=== PATIENT | female | born 1955 | race Caucasian/White ===

== ENCOUNTER 2021-12-12 13:51 | Emergency (ER) | payer OTHER ==
[~2021-12-12] VITALS: Ht 167.6 cm; Wt 75.7 kg
[2021-12-12] MEDS ORDERED: IV NORMAL SALINE 500 ML BAG IV ONE (14:15)
[2021-12-12 14:59] LABS: ALANINE AMINOTRANSFERASE 27 U/L (14-59); ALKALINE PHOSPHATASE 133 U/L (50-136); ASPARTATE AMINOTRANSFERASE 14 U/L (15-37); BILIRUBIN,DIRECT 0.2 mg/dL (0.0-0.2); BILIRUBIN,TOTAL 0.5 mg/dL (0.2-1.0); CARBON DIOXIDE 27 mmol/L (21-32); CHLORIDE 109 mmol/L (98-107); CREATININE 1.3 mg/dL (0.6-1.3); GLUCOSE 101 mg/dL (74-106); POTASSIUM 3.9 mmol/L (3.5-5.1); TOTAL PROTEIN, SERUM 6.7 g/dL (6.4-8.2); UREA NITROGEN, BLOOD 20 mg/dL (7-18)
[2021-12-12 15:19] LABS: HEMATOCRIT 36.2 % (31.2-41.9); MEAN CORPUSCULAR HEMOGLOBIN 32.2 uug (24.7-32.8); MEAN CORPUSCULAR VOLUME 97.2 fL (75.5-95.3); PLATELET COUNT (AUTO) 181 K/uL (179-408)
[2021-12-12 16:05] LABS: *BILIRUBIN,URIN NEGATIVE (NEGATIVE); *BLOOD, URINE NEGATIVE (NEGATIVE); *CLARITY,URINE CLEAR (CLEAR); *COLOR,URINE LIGHT YELLOW (YELLOW); *KETONES,URINE NEGATIVE (NEGATIVE); *UROBILINOGEN,URINE 0.2 E.U./dl (NORMAL); LEUKOCYTE ESTERASE ,URINE TRACE (NEGATIVE); NITRITE, URINE NEGATIVE (NEGATIVE); UGLUCOSE NEGATIVE (NEGATIVE)
--- NOTE | 2021-12-12 16:10 | NUR ---
Collected urine and covid test, sent to lab
[2021-12-12 16:19] LABS: RBC,URINE NONE SEEN /HPF (0-3); WBC,URINE NONE SEEN /HPF (0-3)
[2021-12-12 16:20] LABS: BACTERIA,URINE NONE SEEN /HPF (NONE SEEN); SQUAMOUS EPITHELIAL CELL,UR FEW /HPF (NONE SEEN)
--- NOTE | 2021-12-12 17:38 | NUR ---
Patient is resting comfortably in bed with eyes closed< NAD noted. [facility]
--- NOTE | 2021-12-12 18:00 | NUR ---
Called [facility], for pt's transfer.
--- NOTE | 2021-12-12 18:04 | NUR ---
Dr Jiang spoke to Dr Loaiza from [facility].
--- NOTE | 2021-12-12 20:25 | NUR ---
Telephone call to [facility], spoke to Lisa, stated that they are still waiting a call back from [facility] for bed request.
--- NOTE | 2021-12-12 22:08 | NUR ---
Telephone call from [facility] and provided information for transfer. Patient to be transfer to [facility] Room 3303A. Admitting MD, DR Phillips. Telephone # for report .
--- NOTE | 2021-12-12 22:09 | NUR ---
Report given to nurse Encarnacion from [facility]. Patient transportation ETA [id number].
--- NOTE | 2021-12-12 23:13 | NUR ---
Patient transferred to [facility], picked up by [id number], accoampanied by 2 paramedics via gurney. at bedside.
== END 2021-12-12 23:13 | disposition short-term general hospital (02) ==
LOC: ER 13:51
DX: R53.1 Weakness (principal); R26.2 Difficulty in walking, not elsewhere classified; Z91.81 History of falling; Z20.822 Contact with and (suspected) exposure to COVID-19; F31.9 Bipolar disorder, unspecified; Z91.030 Bee allergy status; M79.7 Fibromyalgia; I11.9 Hypertensive heart disease without heart failure
CPT/HCPCS: 99285; 71045; 87426; 80076; 80048; 81001; 82962; 84443; 85025; 84484; 36415; 93005; J7040; A4663